=== PATIENT | female | born 1950 ===

== ENCOUNTER 2018-11-18 14:28 | Inpatient (IN) | payer OTHER ==
[~2018-11-18] VITALS: Ht 170.2 cm; Wt 75.7 kg
--- NOTE | 2018-11-18 19:11 | NUR ---
ADMIT NOTE: PATIENT ADMITTED TO ROOM 522-B FOR HOMICIDAL IDEATION, ALSO STATED THAT SHE HAS HAD SUICIDAL IDEATION. SHE HAS HAD TWO ATTEMPTS IN THE PAST BY OVERDOSING ON PILLS, DOES NOT RECALL WHAT. PATIENT STATED TO [facility] THAT SHE HEARS VOICES THAT ARE TELLING HER TO SHOOT PEOPLE--NOT NECESSARILY ANYONE SPECIFIC SPECIFIC. SHE STATED THAT SHE JUST FELT LIKE SHE WANTED TO TAKE A GUN AND SHOOT PEOPLE. DENIED BOTH FEELINGS OF HI OR SI AT TIME OF ADMISSION. PATIENT HAS TWO DAUGHTERS AND ONE SON, PROVIDED NAMES DURING ADMISSION ASSESSMENT. SOMEWHAT ELEVATED BLOOD PRESSURE, 164/100 MANUAL CUFF. PATIENT ADMITTED TO [facility] SOMEWHAT ANXIOUS; PATIENT HAS A HISTORY OF HYPERTENSION, TAKING SEVERAL HYPERTENSION MEDICATIONS. MEDICATIONS ENTERED AND CLARIFIED WITH N.P., KATARINA KEITH, WITH EXCEPTION OF FLUOXETINE, WHICH HAS PHARMACY ALERT, POSSIBLE SEROTONIN SYNDROME R/T PATIENT TAKING TRAZADONE. TO BE CLARIFIED BY N.P. ON TUESDAY, PER THIS NURSE PASSING INFORMAITON TO NEXT REPORT. VOLUNTARY ADMISSION, ALL PAPERWORK SIGNED BY PATIENT. DR. DUNCAN NOTIFIED AND COMPLETED ASSESSMENT ON PATIENT AT 1815 P.M.
--- NOTE | 2018-11-18 23:26 | NUR ---
NURSES NOTE - THIS NURSE ASSUMED CARE AT 1900. UPON FIRST GREETING PATIENT WAS IN DAY ROOM MINIMALLY INTERACTING WITH OTHER PEERS. SHE APPEARS WITH A FLAT BLUNTED AFFECT DURING TIME OF ASSESSMENT. SHE REPORTS TO THIS NURSE THAT SHE EXPERIENCES AUDITORY HALLUCINATIONS 'SOMETIMES.' THIS NURSE ASKED HER TO ELABORATE AND SHE STATED 'I HEAR A LOT OF THINGS, SOMETIMES THEY TELL ME TO KILL MYSELF AND KILL OTHER PEOPLE AND ALL KINDS OF STUFF.' SHE IS COMPLIANT WITH MEDICATION AND CARE IN THE UNIT. SHE REPORTS THAT SHE WANTS TO GET HER MEDS 'FIXED.' SHE APPEARS TO BE TX FOCUSED. SHE DENIED MEDICAL CONCERNS OTHER THAN LLE PAIN TO WHICH ORDERS FOR TYLENOL ORDER WAS OBTAINED, YET PATIENT DECLINED NEED FOR MEDICATION AT THIS TIME. WILL CONTINUE TO MONITOR MOOD AND BX FOR CHANGES AND MAINTAIN ALL PRECAUTIONS TO ENSURE SAFETY AT ALL TIMES.
--- NOTE | 2018-11-19 06:19 | NUR ---
STEPHEN WAS OBSERVED SLEEPING 8.2 HOURS
[2018-11-19 07:00] VITALS: BP 109/75
--- NOTE | 2018-11-19 10:57 | NUR ---
ASSUMED CARE OF PT @ 0700. PT ATE BREAKFAST IN DAYROOM. AFFECT FLAT, COMPLAINED OF R LEG/HIP PAIN AND HEADACHE - PRN GIVEN PER ORDER. SAT IN AM GROUP W/MINIMAL PARTICIPATION. ORIENTED TO PERSON, PLACE AND TIME. WHEN ASKED ABOUT AUDITORY HALLUCINATIONS, REPORTED TO NONE THIS AM BUT STATES DOES HEAR THEM THROUGHOUT DAYS. NO SI/HI. NO ACUTE DISTRESS NOTED. RESTING QUIETLY IN BED AT THIS TIME. CONTINUE TO MONITOR.
[2018-11-19 22:32] VITALS: BP 97/72
--- NOTE | 2018-11-20 01:13 | NUR ---
PATIENT SITTING UP IN DINING ROOM WHEN THIS NURSE CAME ON AT 1900. SHE IS PLEASANT AND COOPERATIVE. STATES SHE HAS CHRONIC PAIN IN RIGHT LEG. STATES IT'S ALWAYS A 10. SHE STATES SHE WOULD LIKE ES TYLENOL WHEN I BRING HER BEDTIME MEDS. PATIENT WAS WORKING ON EATING A SALAD FOR HER SNACK THAT WAS LEFT OVER FROM SUPPER. SHE ATE VERY LITTLE OF IT AND WAS DONE WITH IT. PATIENT NOT HEARING VOICES. SHE IS A/0X3. PATIENT AMBULATES WITH A WALKER. SHE IS SLOW TO MOVE AND APPEARS WEAK. PATIENT ABLE TO ASK FOR WHAT SHE WANTS. TYLENOL ES GIVEN TO PATIENT AT AND SHE HAS BEEN SLEEPING SINCE 2214. SHE WENT TO HER ROOM AT 2200. BP LOW AT 97/72. TRACE EDEMA IN LOW RIGHT ANKLE. LUNGS CTA BILAT. NO SOB OR COUGHING. PATIENT RESTING QUIETLY.
[2018-11-20 06:23] LABS: HEMATOCRIT 30.5 % (37.0-47.0); MCH 29.8 pg (26.0-34.0); MCHC 32.9 g/dL (28.0-37.0); MCV 90.6 fL (80.0-100.0); RBC 3.37 mil/uL (4.20-5.00); RDW 15.5 % (10.5-14.5); WBC 4.3 thou/uL (4.0-11.0)
--- NOTE | 2018-11-20 06:31 | NUR ---
HELD PATIENT'S HCTZ 25MG THIS MORNING D/T B/P WAS 91/64. PATIENT IS NOT EXPERIENCING OTHER SYMPTOMS. ASYMPTOMATIC. NO DIZZINESS, ETC. PATIENT ALERT AND AWAKE FOR MEDS AND THEN BACK TO REST.
[2018-11-20 06:40] LABS: CALCIUM 8.9 mg/dL (8.5-10.1)
[2018-11-20 07:57] VITALS: BP 88/52
[2018-11-20 18:03] VITALS: BP 117/80
--- NOTE | 2018-11-20 18:12 | NUR ---
ASSUMED CARE AT 0700 THIS MORNING. SHE HAS C/O HEARING VOICES BUT SAYS THEY ARE NOTR SPECIFIC AT THIS TIME. HER B/P WAS LOW AT 88/52 AND 88/56 PULSE 56. ORDERED NORMAL SALINE 500 ML AT 125 HOUR. THIS WAS NOT STARTED UNTIL 1400 BECAUSE OF NO ACCESS. IV TEAM STARTED THE IV. PT. HAS BEEN COOPERATIVE WITH SITTING WITH THE IV. HER B/P MEDS WERE HELD DUE TO THE LOW B/P. HER B/P AT 1700 WAS 117/56. SHE HAS RECEIVED 250 ML OF NS AT THAT TIME. B/P MEDS WERE AGAIN HELD. JOSUE SI/HI. BUT DOES C/O AVH. WENT TO GROUPS TODAY. ATE ON THE UNIT.
--- NOTE | 2018-11-20 19:35 | NUR ---
IV and Saline locked discontinued at 1927.
[2018-11-20 20:04] LABS: URINE BILIRUBIN NEGATIVE (Negative); URINE BLOOD NEGATIVE (Negative); URINE CLARITY CLEAR; URINE COLOR YELLOW; URINE GLUCOSE-RANDOM* NEGATIVE (Negative); URINE KETONES NEGATIVE (Negative); URINE LEUKOCYTES-REFLEX NEGATIVE (Negative); URINE NITRITE-REFLEX NEGATIVE (Negative); URINE PROTEIN (DIPSTICK) NEGATIVE (Negative); URINE SPECIFIC GRAVITY <= 1.005 (1.005-1.035); URINE UROBILINOGEN 0.2 E.U./dl (0.2-1.0)
[2018-11-20 20:14] VITALS: BP 127/87
--- NOTE | 2018-11-20 22:31 | NUR ---
NURSES NOTE - ASSUMED CARE AT 1900. UPON ASSUMING CARE OF PATIENT SHE WAS RECEIVING IV FLUIDS R/T LOW BLOOD PRESSURE. THIS NURSE DISCONTINUED IV FLUIDS AFTER IT WAS FINISHED AT 1928. BP APPEARS TO WNL AT THIS TIME, PATIENT REPORTS 'FEELING BETTER.' SHE APPEARS WITH A FLAT DEPRESSED AFFECT DURING ASSESSMENT. LUNGS CLEAR TO AUSCULTATION IN ALL 4 QUADRANTS BOWEL SOUNDS ACTIVE 4+. SHE REPORTS AH REPORTING 'THEY ARE TELLING ME TO KILL MYSELF AND OTHERS, BUT THEY COME AND GO, BUT IM STILL HEARING THEM' SHE WOULD NOT DISCLOSE IF HER AH WERE GIVING HER PLANS OR DENYING PLANS. SHE DENIED VH, DENIES IMMEDIATE SI, HI, UPON ASSESSMENT. SHE REPORTS GOOD SLEEP AFTER TAKING TRAZODONE. SHE COMPLAINS OF RIGHT THIGH PAIN, GAVE TYLENOL PRN ORDERED. PATIENT REPORTS THIS IS INEFFECTIVE. SHE DENIED MEDICAL CONCERNS WITH NO S/S OF DISTRESS. SHE DENIES ANY OTHER CONCERNS AT THIS TIME, IS ACCEPTING OF ADMISSION. NURSING WILL MAINTAIN PRECAUTIONS TO ENSURE SAFETY.
[2018-11-20 23:06] LABS: GLYCOHEMOGLOBIN (HGB A1C) 4.9 % (4.8-5.6)
--- NOTE | 2018-11-21 06:09 | NUR ---
PATIENT SLEPT 8 HOURS PER MANAGER OF SALES REPORT
[2018-11-21 06:10] LABS: CALCIUM 8.8 mg/dL (8.5-10.1); CREATININE 1.9 mg/dL (0.6-1.0); MAGNESIUM 1.8 mg/dL (1.8-2.4)
--- NOTE | 2018-11-21 06:19 | NUR ---
PATIENT SLEPT 8 HOURS PER LEACH TANK TENDER
[2018-11-21 12:46] VITALS: BP 127/87
--- NOTE | 2018-11-21 12:55 | NUR ---
ASSUMED CARE AT 0700 THIS MORNING. SHE REFUSED BREAKFAST THIS MORNING STATING SHE STATED SHE WAS JUST PLAIN TOO TIRED TO GET UP THIS MORNIING. SHE TOOK HER MORNING MEDICATIONS WITHOUT PROBLEMS NOTED. SHE DID NOT ATTEND GROUP THIS MORNING, OR EAT BREAKFAST. SHE WAS PLEASANT WHEN THIS GENERAL MERCHANDISE SALESPERSON TALKED TO HER. DID NOT ADMIT TO SI/HI. SINCE SHE WAS SLEEPING NOT S/S AVH NOTED EITHER.
--- NOTE | 2018-11-21 16:04 | EKG ---
[address] [place] [address] ELECTROCARDIOGRAM REPORT Name: OSMEL DELGADO Room #: 52-A ADM IN M.R.#: [id number] ������������������ Admission: 11/18/18 ������������������ Attend Phys: David Olivares DO Discharge: ������������������ Date of : 54 Report #: [id number] ����������������������������������������������������������������� [id number] THIS REPORT FOR: //name// [facility] Test Date: 2018-11-21 Test Time: 08:49:18 Pat Name: OSMEL DELGADO Department: Room: [facility] A Gender: F Lead Maintenance Technician: Jesica LACY : 1950 Requested By: David Olivares Order Number: [id number] MD: Aguilar Gardner Measurements Intervals Norman Rate: 72 P: 9 MT: 228 QRS: 15 QRSD: 76 T: 5 QT: 411 QTc: 450 Interpretive Statements Sinus rhythm Prolonged MT interval Low voltage, precordial leads No previous ECG available for comparison Electronically Signed On 11-21-2018 16:04:30 CDT by Aguilar Gardner [email or web address] ��������������������������������������������� <ELECTRONICALLY SIGNED> ���������������������������������������� By: Aguilar Gardner MD ��������������������������������������������� 11/21/18 1604 [id number] Aguilar Gardner MD /ROMMEL
[2018-11-21 20:03] VITALS: BP 132/97
--- NOTE | 2018-11-22 06:16 | NUR ---
PATIENT SLEPT 9.4 HOURS LAST NIGHT.
[2018-11-22 07:00] VITALS: BP 163/98
[2018-11-22 08:00] VITALS: BP 131/90
[2018-11-22 12:37] LABS: CALCIUM 9.4 mg/dL (8.5-10.1); CREATININE 1.8 mg/dL (0.6-1.0); POTASSIUM 4.7 mmol/L (3.5-5.1)
--- NOTE | 2018-11-22 15:12 | NUR ---
ASSUMED PT CARE REPORT RECEIVED FROM NURSE PT IS AOX4 ON RA. VSS. AMBULATES INDEPENDENTLY WITH A WALKER. PT COMPLAINS OF PAIN IN LEGS , TRAMADOL GIVEN AROUND THE CLOCK. WILL CONTINUE TO MONITOR PT
[2018-11-23 00:21] VITALS: BP 131/90
--- NOTE | 2018-11-23 00:58 | NUR ---
PATIENT UP IN MAIN DINING ROOM THIS EVENING. SHE STATES THAT SHE STILL NEEDS TO TALK WITH THE 'CASEMANAGER' HERE. TONIGHT SHE DID LET ME KNOW THAT IT IS ABOUT HER MEDICAID ELGIBITLITY AND SHE NEEDS TO RENEW IT WITHIN 30 DAYS AND NEEDS HELP. THE THREAD TWISTER WAS UNABLE TO TALK WITH THE PATIENT TODAY BUT IS AWARE THAT SHE IS WANTING TO SPEAK WITH HER. PATIENT WITH C/O PAIN IN RIGHT LEG AT A 10. TRAMADOL GIVEN FOR PAIN AT BEDTIME AND PATIENT WENT TO BED. SHE HAS BEEN SLEEPING SINCE 2129. PATIENT A/O X 4. NO SI OR HI. PATIENT UP TO BATHROOM BY SELF X 2. NO COMPLAINTS AND IS COOPERATIVE.
--- NOTE | 2018-11-23 17:50 | NUR ---
PATIENT WAS IN BED WHEN CARE ASSUMES, SHE DID WAKE UP FOR BREAKFAST, CONSUMED 100%, SHE TOOK ALL HER MORNING MEDICATION WHOLE WITHOUT DIFFICULTY. PATIENT PARTICIPATED IN GROUP THERAPY. PATIENT GOAL TODAY IS "NOT TO BE IN SO MUCH PAIN". PATIENT DENIES SUICIDAL AND HOMOCIDAL IDEATION. SHE RATED BOTH DEPRESSION AND ANXIETY 4/10. PRN PAIN MEDICATION GIVEN X 3 TODAY FOR RIGHT LEG PAIN, WITH LITTLE EFFECT. PATIENT'S CONCERN TODAY IS TO TALK TO NUCLEAR REACTOR OPERATOR. NUCLEAR REACTOR OPERATOR DID TALK TO PATIENT, AND SHE WAS HAPPY ABOUT THAT, "I FANALLY GOT THROUGH TO HER". PATIENT DENIES HEARING VOICES TODAY, MOOD IS DEPRESSED, AFFECT IS SAD/WORRIED, NO SIGN OF ACUTE DISTRESS NOTED, WILL MONITOR FOR SAFETY.
[2018-11-24 07:00] VITALS: BP 130/85
[2018-11-24 11:16] VITALS: BP 114/89
--- NOTE | 2018-11-24 11:16 | NUR ---
Pt would like a list of AL and make sure her medicaid is being addressed. SW is seeking out this information for her. Pt is likely going to d/c back to home next week. Possible further neurotesting is required
--- NOTE | 2018-11-24 17:16 | NUR ---
Haley spoke with the agency that assists with medicaid applications and provided them this pt's face sheet to determind her eligibilty. They will email their findings to the weekday Haley
--- NOTE | 2018-11-24 17:47 | NUR ---
ASSUMED CARE AT 0700 TODAY. PT. IN BED MUCH OF THE MORNING, GETTING UP ABOUT 1000. SHE AT LUNCH AND DINNER ON THE UNIT, ATTENDED GROUP AND TOOK HER MEDICATIONS WITHOUT PROBLEMS NOTED. SHE CONTINUES TO REPORT AVH BUT DENIES SI/HI. SHE STATES SHE SEES PEOPLE IN HER ROOM WHEN NO ONE IS THERE. HER B/P WAS 140/107, P79 THIS EVENING.
[2018-11-24 19:37] VITALS: BP 94/69
--- NOTE | 2018-11-24 23:39 | NUR ---
ASSUMED CARE OF THE PT AT 1915. ALERT ET ORIENTED X 3. MAKES NEEDS KNOWN. HEART RATE REGULAR. LUNGS CLEAR BILATERALLY. RESP., EVEN, AND UNLABORED. +BS HEARD IN ALL 4 QUADRANTS. ABD SOFT ET NON TENDOR. REQUESTED A SLEEPING PILL AND A PAIN PILL, WHICH WERE BOTH GIVEN TO HER. SHE WALKS WITH A SLOW STEADY GAIT, USING A WALKER. REMAINS ON 12 MINUTE CHECKS FOR HER SAFETY.
[2018-11-25 07:48] VITALS: BP 150/101
[2018-11-25 08:00] VITALS: BP 150/101
--- NOTE | 2018-11-25 15:06 | NUR ---
Haley spoke with pt and she is wanting HUD, section 8 or housing vouchers adn HALEY educated her on how to get access to those assistance but this cannot be provided through SW in the hospital. Haley called her daughter Lin [phone] and left a VM. Requesting that she call back to set up a family meeting.
--- NOTE | 2018-11-25 18:36 | NUR ---
[id number] PLEASANT AND COOPERATIVE. ATE ALL 3 MEALS IN DINNING ROOM WITH GOOD APPETITE. AMBULATES WITH SLOW STEADY GAIT USING WALKER. TYLENOL GIVEN FOR C/O PAIN.
[2018-11-25 20:22] VITALS: BP 107/82
--- NOTE | 2018-11-26 02:45 | NUR ---
NURSES NOTE - ASSUMED CARE OF PATIENT AT 1900. PATIENT IS ALERT AND ORIENTED X4, SHE IS CALM AND COOPERATIVE WITH STAFF AND OTHER PATIENTS. SHE DOES APPEAR WITH A BLUNTED AFFECT DURING ONE TO ONE WITH PATIENT. SHE FOLLOWS ALL DIRECTIONS GIVEN, MEDICATION COMPLIANT, AND REPORTS PARTICIPATING IN GROUPS. SHE IS CURRENTLY DENYING SI HI WELL HALLUCINATIONS. NO EVIDENCE NOTED THAT SHE IS RESPONDING TO INTERNAL STIMULI. SHE HAS A STEADY GAIT WHEN AMBULATING WITH WALKER. SHE DENIED MEDICAL CONCERNS AND DOES NOT APPEAR TO BE IN DISTRESS. NURSING WILL MAINTAIN ALL PRECAUTIONS TO ENSURE SAFETY AT ALL TIMES.
--- NOTE | 2018-11-26 06:34 | NUR ---
PT SLEPT 9 HOURS PER BRAZER INDUCTION
[2018-11-26 07:00] VITALS: BP 125/89
[2018-11-26 10:12] VITALS: BP 114/78
--- NOTE | 2018-11-26 13:30 | NUR ---
0700: Report rec from noc shift, care assumed. 0800: Ambulatory to DR, uses walker, gait steady/slow. Oriented x4, requests pain medications of Tylenol and Tramadol, meds given, see MAR. Feeds self, appetite good, takes meds whole w/o difficulty. Pain medications given for Rt leg discomfort with good results. Mood is pleasant, soft spoken, cooperative.
[2018-11-26 19:42] VITALS: BP 129/84
--- NOTE | 2018-11-27 00:42 | NUR ---
PT AMBULATING INDEPENDENTLY WITH WALKER AND IS TOLERATING FAIR. TRAMADOL PROVIDING PAIN RELIEF. RESTING COMFORTAVLY. NO NEEDS VOICED. WILL CONTINUE TO PROVIDE FREQUENT OBSERVATION.
--- NOTE | 2018-11-27 17:34 | NUR ---
Haley called Edwin Roper, Pt's daughter, to schedule a family meeting. Edwin informed Haley to call Lin Judson, Pt's other daughter, as this is who the Pt lives with. Haley called Lin Roper, , and left a for a return call back.
--- NOTE | 2018-11-27 18:08 | NUR ---
[id number]: Report rec from noc shift, care assume. Ambulatory to DR with assist of walker, mood pleasant, no agitation noted. Feeds self with set up assist, appetite good, takes meds whole w/o difficulty. Tylenol 650mg po and Tramadol 50mg po given per pt request due to Rt lower extremity pain.
[2018-11-27 19:24] VITALS: BP 133/99
--- NOTE | 2018-11-27 19:43 | NUR ---
assumed care of the pt at 1930. the pt was on the phone when this residential mortgage underwriter first came on duty. alert et oriented x 3. makes needs known. walks with a walker, has a slow steady gait. denies anxiety and depression, si/hi, a/v hallunications. remains on 12 minute checks for her safety.
[2018-11-28 09:03] VITALS: BP 120/73
--- NOTE | 2018-11-28 11:18 | NUR ---
ASSUMED PATIENT CARE AT 0730. PATIENT REMAINED IN BED THROUGH BREAKFAST, REFUSED. C/O SEVERE PAIN IN BOTH LEGS, DID NOT C/O TO NIGHT STAFF, THEREFORE DID NOT RECEIVE PRN MEDICATION. NURSE ADMINISTERED [id number] MG PO AT 0930 A.M., PAIN RATED "10." PARTIAL PAIN RELIEF, REQUESTING TYLENOL AT THIS TIME. NURSE WILL ADMINISTER TYLENOL.
--- NOTE | 2018-11-28 16:28 | NUR ---
SW will schedule transportation to be setup on tomorrow, November 29, 2018. Pt will be d/c home with an psychiatrist appointment.
[2018-11-28 19:10] VITALS: BP 157/118
[2018-11-28 21:30] VITALS: BP 148/98
--- NOTE | 2018-11-28 22:14 | NUR ---
Care assumed of patient at 1900: Patient seated in day room at start of shift. Patient pleasant and cooperative. Alert and oriented x4. Patient states that she is concerned about pain management. Received PRN Tylenol with HS medications. Patient also reported that she needed her "sleeping pills". Patient provided PRN dose of Trazodone. Patient reports that her goal is to go home. Patient interactive with staff. Patient BP 150/110, HR 94 at start of shift. YVONNE Watt, notified. Order obtained for Hydralazine 50mg po 1x dose now. Patient provided dose. At one hour follow up, BP 148/98, HR 80. Patient ate 100% HS snack. Denies SI/HI/AH/VH. No s/s of delusional or paranoia behavior at this time. Will continue frequent rounds for safety.
[2018-11-29] MEDS ORDERED: LIPITOR80 MG PO (13:12)
[2018-11-29] MEDS ORDERED: COREG6.25 MG PO (13:13)
[2018-11-29] MEDS ORDERED: ASPIRIN325 PO (13:13)
[2018-11-29] MEDS ORDERED: REMERON15 MG PO (13:14)
[2018-11-29] MEDS ORDERED: TRAMADOL 50 MG50 MG PO (13:14)
[2018-11-29] MEDS ORDERED: TRAZODONE HCL100 MG PO (13:15)
[2018-11-29] MEDS ORDERED: SENNA-TIME S T1 EACH PO (13:15)
[2018-11-29] MEDS ORDERED: RISPERIDONE 1 MG1 MG PO (13:15)
[2018-11-29] MEDS ORDERED: MIRALAX17 GM PO (13:15)
[2018-11-29] MEDS ORDERED: PROTONIX 20 MG20 M1 PO (13:16)
[2018-11-29] MEDS ORDERED: SYNTHROID50 MCG PO (13:16)
[2018-11-29] MEDS ORDERED: OXYBUTYNIN 5 MG5 M1 PO (13:17)
[2018-11-29] MEDS ORDERED: VITAMINC500 PO (13:17)
[2018-11-29] MEDS ORDERED: CENTRUM SILVER1 EAC4 PO (13:18)
[2018-11-29 13:34] VITALS: BP 135/102
--- NOTE | 2018-11-29 13:39 | NUR ---
ASSUMED CARE AT 0700 THIS MORNING. PT. HAD C/O PAIN IN HER RIGHT LEG ON THE PRODUCTION MECHANIC TIN CANS. SHE RECEIVED TRAMADOL AT 0530. AT 0900 WHEN MEDICATIONS WERE GIVEN, SHE AGAIN ASKED FOR A TRAMADOL. IT WAS TOO SOON FOR THIS MEDICATIONS SO A TYLENOL WAS GIVEN TO HER INSTEAD. SHE ATE ON THE UNIT, TOOK HER MEDICATIONS WITHOUT DIFFICULTY AND ATTENDED GROUPS. JOSUE ROACH/GERALDO OR SVETLANA TODAY. SHE IS TO BE DISCHARGED TO GO HOME THIS AFTERNOON. BELONGINGS GATHERED.
[2018-11-29 13:59] VITALS: BP 135/102
[2018-11-29 14:39] VITALS: BP 135/102
--- NOTE | 2018-11-29 15:59 | NUR ---
Patient Name: OSMEL DELGADO Admission Date: 11/18/18 DISCHARGE PLAN: Pt will be discharging home with her daughter Lin. Care Assessment: Pt was assessed by Dr. Olivares, and diagnosed with Major Neurocognitive Disorder Level II Assessment: None Transportation: Pt will be transporte [facility]. Special Instructions/Notes: Pt will need to have continuance care with PCP, and psychiatrist. Pt has appointment with [facility] on December 06, 2018. Pt has appointment with [facility] on December 05, 2018 at 10:00am. DISCHARGE TO FACILITY: Facility: Phone: Fax: Address: Contact Name: Phone: PCP: [facility] on December 06, 2018 Psychiatrist: [facility] on December 05, 2018 at 10:00am
--- NOTE | 2018-11-30 09:54 | D ---
[facility] [place] [address] DISCHARGE SUMMARY Name: OSMEL DELGADO Room #: 522A-A [facility] IN M.R.#: [id number] Admission: 11/18/18 ������������������ Attend Phys: David Olivares DO Discharge: 11/29/18 ������������������ Date of : 54 Report #: [id number] THIS REPORT FOR: //name// CC: David ECKERT unknown DATE OF SERVICE: 11/29/2018 INPATIENT PSYCHIATRIC DISCHARGE SUMMARY CERAMIC WORKER AT THE TIME OF DISCHARGE: Eric Fernandez MD. DISCHARGE DIAGNOSES: Unspecified schizophrenia and other psychotic disorder, much improved. Auditory hallucinations resolved, major neurocognitive disorder mild degree due to cerebrovascular disease without behavioral disturbance. 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 DISCHARGE PLAN: Per the patient's request is to return to Community living environment, specifically, she will be transported by [facility]. She will be discharging to her home with her daughter, Lin. Psychiatric followup will be PCP. She has an appointment at [facility] on 12/06/2018 and an appointment with [facility] 12/05/2018 at 10:00 a.m. The patient is strongly encouraged to keep those as she would benefit from numerous services including case management. The patient will need close followup as there is a significant risk factor for her to have further medical complications including the need to be living in a nursing facility. DISCHARGE MEDICATIONS: Atorvastatin 80 mg p.o. at bedtime for hyperlipidemia; carvedilol 6.25 mg p.o. b.i.d. with meals for hypertension, 30-day prescription was given for these; aspirin 325 mg p.o. daily; tramadol 50 mg p.o. q. 6h. p.r.n. for pain level 6-7, Rx given for #20; mirtazapine 15 mg p.o. at bedtime for sleep, appetite, and depression to a degree; trazodone 100 mg p.o. at bedtime p.r.n. if insomnia becomes refractory; risperidone 0.5 mg p.o. at 0900, 2100, for psychosis; polyethylene glycol 17 g p.o. daily for bowel motility; senna with docusate 1 tab p.o. daily for bowel motility; pantoprazole 20 mg p.o. daily at 0700 for GERD; levothyroxine 50 mcg p.o. daily for hypothyroidism; oxybutynin 10 mg p.o. t.i.d. at 0900, 1300, and 1700 for incontinence; ascorbic acid 500 mg p.o. daily for supplementation; and multivitamin 1 tab p.o. daily. LABORATORY DATA: This admission included on 11/20/2018, CBC: H and H 10.2 and 30.5, which were low; white count normal at 4.3; and platelet 175, which was normal. Electrolytes last done 11/22/2018, sodium 138, potassium 4.7, chloride 106, bicarbonate 20, BUN 43, creatinine 1.8, which is roughly where she lives. She did receive an IV bolus when her creatinine crossed 2. Estimated GFR 28, [address] [address] DISCHARGE SUMMARY Name: OSMEL DELGADO Room #: 522A-A [facility] IN M.R.#: [id number] Admission: 07/13/19 ������������������ Attend Phys: David Olivares, DO Discharge: 11/29/18 ������������������ Date of : 54 Report #: [id number] glucose 96, calcium 9.4. Urinalysis was negative. REASON FOR ADMISSION: The patient was discharged from [facility] on 11/06/2018, last few days began hearing voices, again group of voices telling her to harm herself and others. HOSPITAL COURSE: The patient was admitted to Geriatric Psychiatry Unit. She was initially seen by nurse Nery, fluoxetine was continued. When I saw her, I elected to begin an antipsychotic. She was still having auditory hallucinations, within the last 48 hours, she had full resolution of symptoms. The patient had neuropsychological testing by Dr. 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 The patient also had symptomatology of psychosis, bipolar disorder with psychosis to be most prominent. The patient received the [facility] Evaluation of Living Skills, which found her presently able to live independently with assistance with some things. The patient was recommended to consider assisted living level of care, but she wanted to live independently at the moment. The patient retains decisional capacity as her dementia is only mild. On the day of discharge, she was not suicidal or homicidal. It should be noted during admission, the patient had a number of pain complaints in her legs and back and also swelling in legs, which was addressed by the hospitalist. She has been given very limited prescription with controlled substance at discharge. The patient was advised she will need primary care followup for this as certainly she is on several previous list of medications. PHYSICAL EXAMINATION: VITAL SIGNS: On day of discharge are as follows: Temperature 36.7, pulse 75, respirations 18, BP 135/102, which is slightly higher than I would like; and pulse ox 99%. NEUROLOGIC: This is a well-developed, fairly well-nourished female, but disheveled. Attention intact. Concentration intact. Speech is normal, rate, rhythm, and tone. Thought process linear and goal directed. Thought content focused on discharge and going home, seeing her daughter. No psychomotor agitation. No psychomotor retardation. Mood and affect congruent, euthymic, broad range. Denied SI or HI. Denied hopelessness, helplessness. Memory not formally tested today. Discharge insight fair to limited. Judgment fair. Fund of knowledge, no greater than average. Prognosis for this patient is guarded given her multiple medical problems and also measurable neurocognitive deficits. ��������������������������������������������� <ELECTRONICALLY SIGNED> ���������������������������������������� By: David Olivares DO ��������������������������������������������� 11/30/18 0954 [id number] David Olivares DO /nt
== END 2018-11-29 15:00 | disposition home or self-care (01) | DRG 885 ==
LOC: SICU 14:28 → SBH 15:26
PROVIDERS: Internal Medicine; ADMIT Psychiatry & Neurology Psychiatry
DX: F20.9 Schizophrenia, unspecified (principal); R45.851 Suicidal ideations; I69.351 Hemiplegia and hemiparesis following cerebral infarction affecting right dominant side; F29 Unspecified psychosis not due to a substance or known physiological condition; F01.50 Vascular dementia, unspecified severity, without behavioral disturbance, psychotic disturbance, mood disturbance, and anxiety; F41.9 Anxiety disorder, unspecified; I10 Essential (primary) hypertension; G47.00 Insomnia, unspecified; Z96.641 Presence of right artificial hip joint; F31.9 Bipolar disorder, unspecified; I95.9 Hypotension, unspecified; M19.90 Unspecified osteoarthritis, unspecified site; Z88.0 Allergy status to penicillin; Z91.041 Radiographic dye allergy status
CPT/HCPCS: 10880